=== PATIENT | male | born 1940 | race Hispanic/Latino ===

== ENCOUNTER 2016-10-06 17:53 | Observation (INO) | payer BC ==
[2016-10-06 18:08] VITALS: BMI 26.5
--- NOTE | 2016-10-06 18:24 | ED PDOC ---
Arrival/HPI - General Historian: Patient, Family - General Chief Complaint: ENT Problem Time Seen by Provider: 10/06/16 17:57 - History of Present Illness Narrative History of Present Illness (Text): 10/06/16 18:21 Mr. Mancia is a 76 year old male complaining of symptoms of foreign body stuck in his esophagus. Patient reports that three hours ago he was eating a hot dog and suddenly felt a piece of the hot dog become lodged in his throat. He reports vomiting immediately following the sensation with producing a few small pieces of food. He admits to having dry vomiting leading up to his presentation in the emergency department without presence of food. He is unable to hold down liquids and is constantly spitting up mucous and saliva. He denies any difficulty breathing, chest pain, or hematemesis. He has had a previous episode similar to this one about 10 years ago also involving a hot dog. ( Sigifredo Ram) Past Medical History - Provider Review Nursing Documentation Reviewed: Yes - Genitourinary/Gynecological Hx Genitourinary Disorders: No - Psychiatric Hx Psychophysiologic Disorder: No Hx Substance Use: No - Anesthesia Hx Anesthesia: Yes Family/Social History - Physician Review Nursing Documentation Reviewed: Yes Family/Social History: No Known Family HX Smoking Status: Never Smoked Hx Alcohol Use: Yes Frequency of alcohol use: Socially Hx Substance Use: No Allergies/Home Meds Allergies/Adverse Reactions: Allergies No Known Allergies Allergy (Verified 10/06/16 18:08) Review of Systems - Physician Review All systems were reviewed & negative as marked: Yes - Review of Systems Eyes: Other (eyes watering ) ENT: Voice Changes, Other (nasal drainage) Respiratory: absent: SOB, Cough Cardiovascular: absent: Chest Pain Physical Exam Vital Signs Reviewed: Yes Temperature: Afebrile Pulse: Regular Respiratory Rate: Normal Appearance: Positive for: Well-Appearing Pain Distress: None Mental Status: Positive for: Alert and Oriented X 3 - Systems Exam Head: Present: Atraumatic, Normocephalic Pupils: Present: PERRL Extroacular Muscles: Present: EOMI Conjunctiva: Present: Other (watering) Mouth: Present: Moist Mucous Membranes Pharnyx: Present: Normal, Muffled/Hoarse Voice. No: TONSILS ENLARGED Neck: Present: Normal Range of Motion, MIDLINE TENDERNESS Respiratory/Chest: Present: Clear to Auscultation, Good Air Exchange. No: Respiratory Distress, Accessory Muscle Use Cardiovascular: Present: Regular Rate and Rhythm, Normal S1, S2. No: Murmurs Abdomen: Present: Normal Bowel Sounds. No: Tenderness, Distention, Peritoneal Signs Upper Extremity: Present: Normal Inspection. No: Cyanosis, Edema Lower Extremity: Present: Normal Inspection. No: Edema Neurological: Present: GCS=15, CN II-XII Intact, Speech Normal Skin: Present: Warm, Dry, Normal Color. No: Rashes Vital Signs Temp Pulse Resp BP Pulse Ox 10/06/16 21:44 74 16 175/69 H 96 10/06/16 18:07 98.2 F 87 18 150/98 H 97 Medical Decision Making ED Course and Treatment: 10/06/16 21:34 Patient Seen With Resident: In agreement with resident note which contains more details about the patient. Patient was seen and evaluated with resident. Came up with plan and treatment together. (Ck Hester DO) 10/06/16 18:33 Impression: Mr. Kaminski is a 76 year old male who complains of swallowing and keeping fluids down due to a piece of hot dog being stuck in his throat for the past 3 hours. Differential Diagnosis included but are not limited to: - Foreign body in throat Plan: - 1 mg IV glucagon and reassess - 1 mg IV glucagon - Contact GI fellow to discuss case and possibility for endoscopy - Reassess and disposition Progress Notes: 10/06/16 20:44 Spoke with GI fellow rubbish collection supervisor and discussed case. He agrees to come and evaluate the patient for possible endoscopy. 10/06/16 21:18 EKG: Ordered, reviewed, and independently interpreted the EKG. Rate : 54 BPM Rhythm : NSR Interpretation : No ST-segment elevations or depressions, no T-wave inversions, sinus pause present Comparison : No previous EKG for comparison. (Sigifredo Ram) - Lab Interpretations Lab Results: 10/06/16 21:20 10/06/16 21:20 Lab Results 10/06/16 21:20: Sodium 143, Potassium 4.3, Chloride 104, Carbon Dioxide 28, Anion Gap 15, BUN 26 H, Creatinine 1.1, Est GFR ( Amer) > 60, Est GFR ( Non-Af Amer) > 60, Random Glucose 133 H, Calcium 10.0, Total Bilirubin 0.7, AST 29, ALT 31, Alkaline Phosphatase 85, Total Protein 7.7, Albumin 4.6, Globulin 3.0, Albumin/Globulin Ratio 1.5 10/06/16 21:20: PT 10.6, INR 0.98, APTT 25.4 10/06/16 21:20: WBC 15.3 H, RBC 4.55, Hgb 14.2, Hct 40.7 L, MCV 89.5, MCH 31.2, MCHC 34.9, RDW 12.8, Plt Count 371, MPV 9.1, Gran % 91.8 H, Lymph % (Auto) 5.0 L , [place] % (Auto) 3.1, Eos % (Auto) 0.0 L, Baso % (Auto) 0.1, Gran # 14.01 H, Lymph # 0.8 L, [place] # 0.5, Eos # 0.0, Baso # 0.02 - RAD Interpretation Radiology Orders: 10/06/16 20:59 NECK & CHEST W/O CONTRAST [CT] Stat - Medication Orders Current Medication Orders: Discontinued Medications Glucagon (Glucagen Diagnostic Kit) 1 mg IV STAT STA Stop: 10/06/16 18:26 Last Admin: 10/06/16 18:59 Dose: 1 mg Glucagon (Glucagen Diagnostic Kit) 1 mg IV STAT STA Stop: 10/06/16 19:27 Last Admin: 10/06/16 19:45 Dose: 1 mg Ondansetron HCl (Zofran Inj) 8 mg IVP STAT STA Stop: 10/06/16 21:28 Last Admin: 10/06/16 21:41 Dose: 8 mg - PA / PROJECT ENG / Resident Statement SHARONDA has reviewed & agrees with the documentation as recorded. SHARONDA has examined the patient and agrees with the treatment plan. - Scribe Statement Kiana Chaudhry Provider Scribe Attestation: All medical record entries made by the Scribe were at my direction and personally dictated by me. I have reviewed the chart and agree that the record accurately reflects my personal performance of the history, physical exam, medical decision making, and the department course for this patient. I have also personally directed, reviewed, and agree with the discharge instructions and disposition. (Ck Hester DO) Disposition/Present on Arrival - Present on Arrival Any Indicators Present on Arrival: No History of DVT/PE: No History of Uncontrolled Diabetes: No Urinary Catheter: No History of Decub. Ulcer: No History Surgical Site Infection Following: None - Disposition Have Diagnosis and Disposition been Completed?: Yes Disposition Time: 22:25 - Disposition Diagnosis: Foreign body in esophagus Disposition: HOSPITALIZED Condition: STABLE Referrals: Francisco Geronimo MD [Primary Care Provider] - Follow up with primary Forms: [employer] ([place]ican)
[2016-10-06] MEDS ORDERED: Glucagon Recombinant 1 mg Inj IV STA ×2 (18:25→19:26)
[2016-10-06 21:38] LABS: BASO # 0.02 K/mm3 (0.0-2.0); BASO % 0.1 % (0.0-3.0); GRAN # 14.01 (1.4-6.5); GRAN % 91.8 % (50.0-68.0); HEMOGLOBIN 14.2 gm/dL (14.0-18.0); LYMPH # 0.8 (1.2-3.4); MEAN CELL VOLUME 89.5 fL (80.0-105.0); MEAN CORPUSCULAR HEMOGLOBIN 31.2 pg (25.0-35.0); MEAN CORPUSCULAR HGB CONC 34.9 g/dl (31.0-37.0); MEAN PLATELET VOLUME 9.1 fl (7.0-11.0); MONO # 0.5 (0.1-0.6); MONO % 3.1 % (1.0-6.0); PLATELET COUNT 371 10^3/uL (120.0-450.0); RBC 4.55 10^6/uL (3.5-6.1); RED CELL DISTRIBUTION WIDTH 12.8 % (11.5-14.5); WHITE BLOOD COUNT 15.3 10^3/ul (4.5-11.0)
[2016-10-06 21:45] LABS: INR 0.98 (0.93-1.08); PARTIAL THROMBOPLASTIN TIME 25.4 Seconds (23.7-30.8); PROTHROMBIN TIME 10.6 Seconds (9.9-11.8)
[2016-10-06 21:47] LABS: ALB/GLOB RATIO 1.5 (1.1-1.8); ALBUMIN 4.6 g/dL (3.0-4.8); ALT/SGPT 31 U/L (7-56); AST/SGOT 29 U/L (15-59); BLOOD UREA NITROGEN 26 mg/dL (7-21); GFR AFRICAN-AMERICAN > 60; GFR NON-AFRICAN AMERICAN > 60
--- NOTE | 2016-10-06 22:04 | CP.PCM.CON ---
<Kvng Nash - Last Filed: 10/07/16 02:02> History of Present Illness - History of Present Illness History of Present Illness: PGY5 GI Fellow Consult Note Patient is a 76yo male with PMHx of HTN, diverticulitis and daily EtOH use who presented to the ED with chest discomfort following ingestion of a hot dog this afternoon. At around 3PM, the patient was eating lunch consisting of a hot dog with sauerkraut when he felt the food get stuck in his throat. He immediately vomited but did not have relief of symptoms and continued to feel pressure near the suprasternal notch. Since this time he has been unable to swallow anything else, spitting up water when he tried to drink it. At present, he is unable to swallow his secretions. On arrival to the ED he was given 2 doses of Glucagon without improvement in symptoms. Patient admits that this occurred several years ago (approximately 10 years) and he required emergent endoscopy at that time. In the interim he does admit to occasional dysphagia, feeling food gets stuck near the suprasternal notch and slowly passes down his esophagus with time. He has not had any further work up to date to evaluate the cause of his dysphagia. PMHx: See HPI PSHx: Sinus surgery FHx: Discussed with patient and he denies any significant family history Social: Denies tobacco or illicit drug use; nearly daily EtOH use Endo: Has had unremarkable colonoscopy previously, endoscopy previously for food bolus removal 12 system ROS performed and negative except where stated Past Patient History - Past Social History Smoking Status: Never Smoked - GENITOURINARY/GYNECOLOGICAL Hx Genitourinary Disorders: No - PSYCHIATRIC Hx Psychophysiologic Disorder: No Hx Substance Use: No - SURGICAL HISTORY Hx Surgeries: No - ANESTHESIA Hx Anesthesia: Yes Meds Allergies/Adverse Reactions: Allergies Allergy/AdvReac Type Severity Reaction Status Date / Time No Known Allergies Allergy Verified 10/06/16 18:08 Physical Exam - Constitutional Appears: Non-toxic, No Acute Distress - Eye Exam Eye Exam: EOMI, PERRL - ENT Exam ENT Exam: Mucous Membranes Moist - Respiratory Exam Respiratory Exam: Clear to Auscultation Bilateral. absent: Rales, Rhonchi, Wheezes - Cardiovascular Exam Cardiovascular Exam: RRR, +S1, +S2 - GI/Abdominal Exam GI & Abdominal Exam: Normal Bowel Sounds, Organomegaly, Soft. absent: Distended , Firm, Guarding, Rigid, Tenderness - Extremities Exam Extremities exam: Positive for: normal inspection. Negative for: pedal edema - Neurological Exam Neurological exam: Alert, Oriented x3 - Psychiatric Exam Psychiatric exam: Normal Affect, Normal Mood - Skin Skin Exam: Dry, Warm Results - Vital Signs Recent Vital Signs: Last Vital Signs Temp 98.2 F 10/06/16 18:07 Pulse 74 10/06/16 21:44 Resp 16 10/06/16 21:44 BP 175/69 H 10/06/16 21:44 Pulse Ox 96 10/06/16 21:44 - Labs Result Diagrams: 10/06/16 21:20 10/06/16 21:20 Labs: Laboratory Results - last 24 hr 10/06/16 10/06/16 21:20 21:20 WBC 15.3 H RBC 4.55 Hgb 14.2 Hct 40.7 L MCV 89.5 MCH 31.2 MCHC 34.9 RDW 12.8 Plt Count 371 MPV 9.1 Gran % 91.8 H Lymph % (Auto) 5.0 L [place] % (Auto) 3.1 Eos % (Auto) 0.0 L Baso % (Auto) 0.1 Gran # 14.01 H Lymph # 0.8 L [place] # 0.5 Eos # 0.0 Baso # 0.02 PT 10.6 INR 0.98 APTT 25.4 Assessment & Plan - Assessment and Plan (Free Text) Assessment: Patient is a 76yo male with PMHx of HTN, diverticulitis and daily EtOH use who presented to the ED with chest discomfort following ingestion of a hot dog this afternoon. -Esophageal food bolus obstruction -HTN Plan: -S/P 2 doses glucagon without relief -Zofran PRN nausea -Plan for EGD tonight with removal of foreign body -Recommend CT neck/chest w/o contrast prior to procedure if possible -Check CBC, CMP, INR -Maintain NPO - Date & Time Date: 10/06/16 Time: 09:20 <Nolberto Johnson MD - Last Filed: 10/07/16 09:29> Meds - Medications Medications: Current Medications Pantoprazole Sodium (Protonix Inj) 40 mg IVP ACB BREN Results - Vital Signs Recent Vital Signs: Last Vital Signs Temp 97.8 F 10/07/16 07:30 Pulse 65 10/07/16 07:30 Resp 20 10/07/16 07:30 BP 121/73 10/07/16 07:30 Pulse Ox 98 10/07/16 07:30 - Labs Result Diagrams: 10/06/16 21:20 10/06/16 21:20 Labs: Laboratory Results - last 24 hr 10/07/16 01:19 POC Glucose (mg/dL) 160 H Attending/Attestation - Attestation I have personally seen and examined this patient.: Yes I have fully participated in the care of the patient.: Yes I have reviewed all pertinent clinical information: Yes Notes (Text): 10/07/16 09:29 patient seen with Gi fellow. This is a 76yo male with PMHx of HTN, diverticulitis and daily EtOH use who presented to the ED with chest discomfort following ingestion of a hot dog this afternoon. Likely food bolus in esophagus - not able to hold secretions. Will do urgent endoscopy to remove bolus -Maintain NPO
[2016-10-06] MEDS ORDERED: Lactated Ringer's 1,000 ML IV SCH (22:50)
[2016-10-06] MEDS ORDERED: Succinylcholine 200 mg/10 ml Inj IV ONE (22:54)
[2016-10-06] MEDS ORDERED: Etomidate 20 mg/10ml Inj IV ONE ×2 (22:54→23:56)
[2016-10-06] MEDS ORDERED: Propofol 10 mg/ml Inj (20 ML) ONE ×2 (23:32→23:44)
[2016-10-06] MEDS ORDERED: ePHEDrine 50 mg/ml Inj ONE (23:33)
[2016-10-06] MEDS ORDERED: Neostigmine Methylsulfate 3mg/3ml Syringe IV ONE (23:34)
[2016-10-06] MEDS ORDERED: Desflurane Inhalation Anesthetic Liq (240 ml) ONE (23:46)
[2016-10-06] MEDS ORDERED: Esmolol 100 mg/10ml Inj IV ONE (23:47)
[2016-10-07] MEDS ORDERED: Naloxone 0.4 mg/ml Inj (Adult) ONE (00:01)
[2016-10-07 03:53] VITALS: RESP 20
[2016-10-07] MEDS ORDERED: Pneumococcal 23-Valent Vaccine IM ONE (04:12)
[2016-10-07] MEDS ORDERED: Iohexol 350 MG/100 ML VIAL ONE (08:00)
--- NOTE | 2016-10-07 08:13 | CT ---
PROCEDURE: CT Chest without contrast HISTORY: ? food bolus in esophagus COMPARISON: None. TECHNIQUE: Contiguous axial images were obtained through the neck and chest without intravenous contrast enhancement. Sagittal and coronal reconstructions were performed. Radiation dose (DLP): 1362 mGy-cm. This CT exam was performed using one or more of the following dose reduction techniques: Automated exposure control, adjustment of the mA and/or kV according to patient size, and/or use of iterative reconstruction technique. FINDINGS: LUNGS: Clear lungs. Visualized airway clear. MEDIASTINUM: There are no suspicious findings throughout the supra or infrahyoid neck within neck beginning at the inferior nasopharynx. If upper nasopharynx pathology is clinically suspected then repeat CT is recommended through the entire nasopharynx. The lack venous contrast limits evaluation of definition of the neck anatomy. The pharyngeal and laryngeal airway appears widely patent as well as the visualized upper and mid trachea. No prominent lymphadenopathy. Dental artifact obscures the anterior oral cavity. Gross sinusitis is seen affecting the bilateral maxillary sinuses incidentally. The cervical esophagus appears grossly nonfocal and is collapsed. In the mediastinum, there upper esophagus is moderately distended with air with retained food and air moderately distending the mid segment. A [id number] amount retained food and gas distends the distal 3rd of the esophagus with a question of esophageal thickening or a small hiatal hernia identified distally near the esophagogastric junction. This there is limited evaluation due to lack of oral contrast. Consider follow-up esophagram. Unremarkable thoracic aorta. No aneurysm. Normal sized heart. Main pulmonary artery unremarkable. No vascular congestion. No lymphadenopathy. PLEURA: No pleural fluid. No pneumothorax. BONES: No fracture. No destructive lesion. UPPER ABDOMEN: Fluid mildly distends the stomach with upper abdomen sections are otherwise unremarkable without contrast. OTHER FINDINGS: None. IMPRESSION: 1. Limited non of air and retained food distend the mid and distal thirds of the esophagus with thickening of the distal most esophagus tip to exclude versus small hiatal hernia. Consider upper endoscopy as well as esophagram for greater detail evaluation of the distal esophagus. The oral pattern does not appear to represent a achalasia type distension. 2. Unremarkable appearing unenhanced neck CT. 3. No acute cardiopulmonary findings.
--- NOTE | 2016-10-07 08:43 | CP.PCM.PN ---
<Kvng Nash - Last Filed: 10/07/16 09:16> Subjective - Date & Time of Evaluation Date of Evaluation: 10/07/16 Time of Evaluation: 07:50 - Subjective Subjective: PGY5 GI Fellow Progress Note Patient seen and examined bedside this morning. The patient admits to sore throat but otherwise has no complaints. He is eager to eat and return home. Denies any nausea, vomiting, fever, chills overnight. Tolerating sips of water without issue. 12 system ROS performed and negative except where stated. Objective - Vital Signs/Intake and Output Vital Signs (last 24 hours): Temp Pulse Resp BP Pulse Ox 97.6 F 67 20 124/68 100 10/07/16 02:43 10/07/16 02:43 10/07/16 02:43 10/07/16 02:43 10/07/16 00:50 - Medications Medications: Current Medications Pantoprazole Sodium (Protonix Inj) 40 mg IVP ACB BREN - Labs Labs: PT 10.6 Seconds (9.9-11.8) 10/06/16 21:20 INR 0.98 (0.93-1.08) 10/06/16 21:20 APTT 25.4 Seconds (23.7-30.8) 10/06/16 21:20 - Constitutional Appears: Non-toxic, No Acute Distress - Eye Exam Eye Exam: EOMI, PERRL - ENT Exam ENT Exam: Mucous Membranes Dry - Respiratory Exam Respiratory Exam: Clear to Ausculation Bilateral. absent: Rales, Rhonchi, Wheezes - Cardiovascular Exam Cardiovascular Exam: RRR, +S1, +S2 - GI/Abdominal Exam GI & Abdominal Exam: Soft, Normal Bowel Sounds. absent: Distended, Firm, Guarding, Rigid, Tenderness, Organomegaly - Extremities Exam Extremities Exam: Normal Inspection. absent: Pedal Edema - Neurological Exam Neurological Exam: Alert, Awake, Oriented x3 - Psychiatric Exam Psychiatric exam: Normal Affect, Normal Mood - Skin Skin Exam: Dry, Warm Assessment and Plan - Assessment and Plan (Free Text) Assessment: Patient is a 76yo male with PMHx of HTN, diverticulitis and daily EtOH use who presented to the ED with chest discomfort following ingestion of a hot dog this afternoon. 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 Churchill <Radhames Smith - Last Filed: 10/07/16 12:35> Objective - Vital Signs/Intake and Output Vital Signs (last 24 hours): Temp Pulse Resp BP Pulse Ox 97.8 F 65 20 121/73 98 10/07/16 07:30 10/07/16 07:30 10/07/16 07:30 10/07/16 07:30 10/07/16 07:30 - Medications Medications: Current Medications Pantoprazole Sodium (Protonix Inj) 40 mg IVP [facility] Last Admin: 10/07/16 10:18 Dose: 40 mg - Labs Labs: 10/07/16 09:10 10/07/16 09:10 PT 10.6 Seconds (9.9-11.8) 10/06/16 21:20 INR 0.98 (0.93-1.08) 10/06/16 21:20 APTT 25.4 Seconds (23.7-30.8) 10/06/16 21:20 Attending/Attestation - Attestation I have personally seen and examined this patient.: Yes I have fully participated in the care of the patient.: Yes I have reviewed all pertinent clinical information, including history, physical exam and plan: Yes Notes (Text): 10/07/16 12:34 76 year old male with h/o etoh use, diverticulitis admitted with food impaction s/p EGD showing GEJ mass. 1. 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
[2016-10-07 08:50] VITALS: BP 121/73; PULSE 65; TEMP 97.8; O2SAT 98
[2016-10-07 09:32] LABS: GRAN # 6.64 (1.4-6.5); GRAN % 89.7 % (50.0-68.0); HEMOGLOBIN 13.2 gm/dL (14.0-18.0); LYMPH # 0.5 (1.2-3.4); LYMPH % 6.4 % (22.0-35.0); MEAN CELL VOLUME 90.7 fL (80.0-105.0); MEAN CORPUSCULAR HEMOGLOBIN 30.6 pg (25.0-35.0); MEAN CORPUSCULAR HGB CONC 33.8 g/dl (31.0-37.0); MEAN PLATELET VOLUME 9.1 fl (7.0-11.0); MONO # 0.3 (0.1-0.6); MONO % 3.9 % (1.0-6.0); PLATELET COUNT 342 10^3/uL (120.0-450.0); RBC 4.31 10^6/uL (3.5-6.1); WHITE BLOOD COUNT 7.4 10^3/ul (4.5-11.0)
[2016-10-07 09:42] LABS: ALB/GLOB RATIO 1.5 (1.1-1.8); ALBUMIN 4.4 g/dL (3.0-4.8); ALT/SGPT 23 U/L (7-56); AST/SGOT 27 U/L (15-59); BLOOD UREA NITROGEN 26 mg/dL (7-21); CALCIUM 9.9 mg/dL (8.4-10.5); GFR AFRICAN-AMERICAN > 60; GFR NON-AFRICAN AMERICAN 59
--- NOTE | 2016-10-07 10:19 | CT ---
PROCEDURE: CT Chest, Abdomen and Pelvis with intravenous contrast HISTORY: metastatic w/u, suspected EGJ malignancy COMPARISON: None. TECHNIQUE: IV dose administered: 100 cc of Omni 350 Radiation dose: Total exam DLP = 1114 mGy-cm. This CT exam was performed using one or more of the following dose reduction techniques: Automated exposure control, adjustment of the mA and/or kV according to patient size, and/or use of iterative reconstruction technique. FINDINGS: CT CHEST WITH CONTRAST: LUNGS: Bibasilar infiltrates are seen. This probably represents atelectasis. Pneumonia is less likely. MEDIASTINUM: Unremarkable. Normal caliber aorta and pulmonary arterial trunk. No aortic dissection. Normal size heart. LYMPH NODES: Unremarkable. PLEURA: Unremarkable. No pneumothorax. No pleural fluid. BONES: Unremarkable. OTHER FINDINGS: None. CT ABDOMEN AND PELVIS: LIVER: Unremarkable. No gross lesion or ductal dilatation. GALLBLADDER AND BILE DUCTS: Unremarkable. PANCREAS: Unremarkable. No gross lesion or ductal dilatation. SPLEEN: Unremarkable. ADRENALS: Unremarkable. No mass. KIDNEYS AND URETERS: Unremarkable. No hydronephrosis. No solid mass. VASCULATURE: Unremarkable. No aortic aneurysm. BOWEL: Unremarkable. No obstruction. No gross mural thickening. There is some mural thickening in the region of the esophageal gastric junction. This is consistent with the history of suspected malignancy. There is no local invasion or adenopathy APPENDIX: Normal appendix. PERITONEUM: Unremarkable. No free fluid. No free air. LYMPH NODES: Unremarkable. No enlarged lymph nodes. BLADDER: Unremarkable. REPRODUCTIVE: The prostate is mildly enlarged measuring 6.2 cm in diameter. BONES: No acute fracture. OTHER FINDINGS: None. IMPRESSION: Mural thickening in the region of the GE junction with no local invasion or adenopathy. No evidence of metastatic disease. Bibasilar atelectasis
--- NOTE | 2016-10-07 11:12 | CARD ---
APPROVED REPORT EKG Measurement Heart [id number] IN 120P-11 [id number] <Conclusion> Sinus bradycardia with marked sinus arrhythmia Increased R/S ratio in V1, consider early transition or posterior infarct Abnormal ECG
--- NOTE | 2016-10-08 03:28 | HP ---
HISTORY OF PRESENT ILLNESS: This is a 76-year-old male who is coming into the hospital with past medical history of hypertension, diverticulitis. He says that he was on a trip with school kids near the [facility] [place] and was enjoying a hot dog when he felt it had become stuck in his chest. He said that he tried to vomit, but did not had much relief. He continued to feel pressure. He was having difficulty swallowing. He was spitting up water when he was trying to drink. The patient then had come from the [facility] [place] and came into the emergency room for further evaluation. He was given 2 doses of glucagon and was not having any improvement of his symptoms. He felt that he is dysphagia secondary to food that may have been stuck in his esophagus. He was taken emergently to the endoscopy suite by Dr. Johnson and had intervention. The patient had food that was taken out overnight and this morning he said he feels better. He is able to swallow. He denies any chest pain, no shortness of breath, no nausea, no vomiting, no fever, headache or chills. He says that he had a similar situation happen many years ago. REVIEW OF SYSTEMS: All other review of symptoms are within normal limits. SOCIAL HISTORY: He denies smoking, drinking. He drinks regularly alcohol. FAMILY HISTORY: Noncontributory. PAST SURGICAL HISTORY: He has sinus surgery. PAST MEDICAL HISTORY: He has diverticulitis, hypertension. ALLERGIES: No known drug allergies. HOME MEDICATIONS: Unknown. PHYSICAL EXAMINATION GENERAL: The patient is lying in bed, comfortable, in no acute distress. VITAL SIGNS: Temperature is 98.2, pulse 87, respiration is 18, blood pressure is 150/98, O2 saturation 97%. HEENT: Atraumatic, normocephalic. EOMI, PERRLA. Anicteric sclerae, moist mucosa. No oral lesions. NECK: No JVD, adenopathy, thyromegaly or bruits. No anterior or posterior cervical adenopathy. CARDIOVASCULAR: S1 and S2, regular. No murmur, rubs, or gallops. LUNGS: Clear to auscultation bilaterally. No wheezes, rales or rhonchi. ABDOMEN: Bowel sounds are positive, soft, nontender, nondistended. No hepatosplenomegaly. NEUROLOGIC: No facial asymmetry. Tongue is midline. No uvula deviation. Power is 5/5 in upper extremity and lower extremity. Sensation in the lower extremity and upper extremity is intact. PSYCHIATRIC: She is alert, awake, oriented x3. Good insight. Normal affect. No depression. GENITOURINARY: No CVA tenderness. EXTREMITIES: Lower extremities; no cyanosis, clubbing or edema. He has 2+ pedal pulses. LABORATORY DATA: White count of 15.3, hemoglobin 14.2. Creatinine is 1.1. CT of the abdomen and pelvis shows neural thickening at the region of GE junction with no local invasion or adenopathy. No evidence for metastatic disease, bibasilar atelectasis. Neck CT done shows limited air, distended in the mid and distal third of the esophagus with thickening of the distal most esophagus. esophageal foreign body. EKG shows sinus bradycardia at 54, QTc is 432, no ST-T changes. ASSESSMENT: Foreign body obstruction in the esophagus, status post removal PLAN: The patient was admitted to the hospital. He was given Zofran. He had been placed on a liquid diet. He was seen by GI and the patient was cleared to be discharged home. He is going to follow up with GI for further evaluation. He does have pathology that is pending. He was advised to return to the hospital should symptoms worsen. Chandana Churchill MD
== END 2016-10-07 15:30 | disposition home or self-care (01) ==
LOC: ED 17:53 → 5RNO 10-07 00:36
PROVIDERS: ADMIT Internal Medicine Nephrology; ATTEND Internal Medicine Nephrology
DX: T18.128A Food in esophagus causing other injury, initial encounter (principal); K20.9 Esophagitis, unspecified; K25.9 Gastric ulcer, unspecified as acute or chronic, without hemorrhage or perforation; K29.50 Unspecified chronic gastritis without bleeding; K57.92 Diverticulitis of intestine, part unspecified, without perforation or abscess without bleeding; R07.89 Other chest pain; R13.19 Other dysphagia; I10 Essential (primary) hypertension
CPT/HCPCS: 36415; 43239; 43247; 70490; 71250; 71260; 74177; 80053; 82948; 85025; 85610; 85730; 86850; 86900; 88305; 88312; 88342; 93005; 96374; 96375; 96376; 99283; C9113; G0378; J0330; J1100; J1610; J2001; J2310; J2405; J2704; J2710; J2765; J3010; J7120; Q9967